=== PATIENT | female | born 1935 ===

== ENCOUNTER 2023-04-10 05:57 | Day surgery (SDC) | payer OTHER | END 2023-04-10 12:35 | disposition home or self-care (01) | LOC: AMB-ENDOS 05:57 | PROVIDERS: ATTEND Colon & Rectal Surgery | DX: D12.2 Benign neoplasm of ascending colon (principal); D12.3 Benign neoplasm of transverse colon; D12.5 Benign neoplasm of sigmoid colon; K57.30 Diverticulosis of large intestine without perforation or abscess without bleeding; K64.8 Other hemorrhoids; R19.4 Change in bowel habit; Z20.822 Contact with and (suspected) exposure to COVID-19 ==